=== PATIENT | male | born 1945 | race Caucasian/White ===

== ENCOUNTER 2016-11-22 16:03 | Emergency (ER) | payer MEDICARE, OTHER ==
[~2016-11-22] VITALS: Ht 180.3 cm; Wt 99.8 kg
[~2016-11-22 16:03] MED LIST: ALEV220C2 PO; AMLO-59 PO; ATOR40TA PO; BUSP10TA PO; CALC500T49 PO; CHEW500C2 PO; FLUO20CA8 PO; FOLI1TAB2 PO; LISI40TAB PO; OMEP20CA3 PO; OXYC1SOL PO; PX O20TA PO; SM A
[2016-11-22] MEDS ORDERED: DULO1CAP PO (16:18)
[2016-11-22 17:30] LABS: MEAN CORPUSCULAR HEMOGLOBIN 33.3 pg (27.0-33.0); MEAN CORPUSCULAR HGB CONC 34.5 g/dl (32.0-36.5); MEAN CORPUSCULAR VOLUME 96.5 fl (80.0-96.0); RED CELL DISTRIBUTION WIDTH 13.9 % (11.5-14.5); WHITE BLOOD COUNT 9.4 K/mm3 (4.0-10.0)
[2016-11-22 17:55] LABS: ANION GAP 5 MEQ/L (8-16); BLOOD UREA NITROGEN 45 MG/DL (7-18); CALCIUM LEVEL 8.8 MG/DL (8.8-10.2); CARBON DIOXIDE LEVEL 28 MEQ/L (21-32); CHLORIDE LEVEL 110 MEQ/L (98-107); CREATININE FOR GFR 2.39 MG/DL (0.70-1.30); GLOMERULAR FILTRATION RATE 28.8 (>42); GLUCOSE, FASTING 101 MG/DL (83-110); POTASSIUM SERUM 4.4 MEQ/L (3.5-5.1); SODIUM LEVEL 143 MEQ/L (136-145)
--- NOTE | 2016-11-22 19:00 | REPUSA ---
CT of the chest without contrast Clinical statement: lung nodules. Technique: Multiple axial CT images were obtained with 5 mm cuts through the chest without administra tion of contrast. Comparison: None. Findings: There is no thoracic lymphadenopathy. The visualized portions of the thyroid gland is unrem arkable. There are no pericardial or pleural effusions. The lungs are clear. No nodules are appreciat ed. Limited imaging of the upper abdomen does not demonstrate any acute abnormalities. There are no suspicious osseous lesions. Impression: Unremarkable CT examination of the chest.
--- NOTE | 2016-11-22 19:18 | REP ---
TWO VIEW CHEST: Two views of the chest were performed without priors for comparison. There are increased interstitial markings in each lung base. This may be acute or chronic. No consolidating infiltrate is seen. The heart is normal in size. There is some calcification of the thoracic aorta. There is mild biapical pleural thickening. There are mild degenerative changes of the spine. IMPRESSION: Mild bibasilar interstitial densities may be acute or chronic. Signed by Zeke Hart MD 11/22/2016 08:07 P
[2016-11-22 19:21] VITALS: BP 136/64
--- NOTE | 2016-11-23 07:03 | REP ---
Abdominal aortic sonography: History: Evaluate for aneurysm. No comparison study. Findings: Scanning through the retroperitoneum demonstrates that the abdominal aorta measures 2.3 x 2.9 cm in AP by transverse dimension at the diaphragmatic hiatus. There is a small aneurysm at or just above the level of the renal arteries measuring 3.3 x 3.3 cm in AP by transverse dimension by 3.4 cm in length. The distal aorta measures 2.6 x 2.1 cm in AP by transverse dimension. The right and left common iliac arteries are 1.7 cm in AP dimension. Impression: Small 3.3 cm abdominal aortic aneurysm at or just above the level of the renal arteries. Signed by John Sommer MD 11/24/2016 03:56 P
--- NOTE | 2016-11-23 17:21 | ECGEPIP ---
Stationary ECG Study [facility] Test Date: 2016-11-22 Pat Name: HAILEY PERDOMO Department: Room: - Gender: M Wire Repairer: id : 1945 Requested By: LYNDA CYR Order Number: [id number] Reading MD: Bryn Agosto Measurements Intervals [place] Rate: 54 P: 64 KS: 162 QRS: 66 QRSD: 91 T: 56 QT: 424 QTc: 404 Interpretive Statements SINUS BRADYCARDIA No prior ECG available for comparison at the time of interpretation. Electronically Signed On 11-23-2016 17:20:41 EDT by Bryn Agosto
--- NOTE | 2016-11-26 18:13 | ED PDOC ---
Post-Departure [facility] report of aorta us for fu Alpesh Taylor MD November 26, 2016 18:13
== END 2016-11-22 19:22 | disposition home or self-care (01) ==
LOC: M ED 18:24
DX: R91.1 Solitary pulmonary nodule (principal); N19 Unspecified kidney failure; I71.4 Abdominal aortic aneurysm, without rupture; I11.9 Hypertensive heart disease without heart failure; E78.00 Pure hypercholesterolemia, unspecified; Z85.46 Personal history of malignant neoplasm of prostate; Z79.899 Other long term (current) drug therapy; Z79.82 Long term (current) use of aspirin; F17.210 Nicotine dependence, cigarettes, uncomplicated

== ENCOUNTER → 2017-11-04 | Outpatient (CLI) | payer OTHER | LOC: M RAD 06:54 | DX: I71.4 Abdominal aortic aneurysm, without rupture (principal); I65.23 Occlusion and stenosis of bilateral carotid arteries | CPT/HCPCS: 76775 ==

== ENCOUNTER 2019-06-24 10:53 | Emergency (ER) | payer MEDICARE, OTHER ==
[~2019-06-24] VITALS: Ht 180.3 cm; Wt 92.7 kg
[~2019-06-24 10:53] MED LIST changes: +AMLO-140 PO; -AMLO-59 PO; -ATOR40TA PO; +ATOR40TA75 PO; +DULO1CAP4 PO; +FLUO20CA20 PO; -FLUO20CA8 PO; +FOLI1TAB11 PO; -FOLI1TAB2 PO; +LISI40TA52 PO; -LISI40TAB PO; +OMEP-172 PO; -OMEP20CA3 PO; -OXYC1SOL PO; +OXYC1SOL3 PO
[2019-06-24 11:28] LABS: VENOUS HCO3 24.5 MEQ/L (23.0-27.0); VENOUS O2 SATURATION 80.5 % (60.0-80.0); VENOUS PARTIAL PRESSURE CO2 48.2 mmHg (38.0-50.0); VENOUS PARTIAL PRESSURE O2 44.3 mmHg (30.0-50.0); VENOUS PH 7.324 UNITS (7.330-7.430); VENOUS STANDARD HCO3 22.4 MEQ/L
[2019-06-24 11:33] LABS: BASO % 0.4 % (0.0-1.0); EOS # 0.1 10^3/uL (0.0-0.5); EOS % 1.1 % (0.0-3.0); HEMATOCRIT 42.2 % (42.0-52.0); HEMOGLOBIN 13.9 g/dl (13.5-17.5); LYMPH # 1.3 10^3/uL (1.5-5.0); LYMPH % 12.7 % (24.0-44.0); MEAN CORPUSCULAR HEMOGLOBIN 31.4 pg (27.0-33.0); MEAN CORPUSCULAR HGB CONC 32.9 g/dl (32.0-36.5); MEAN CORPUSCULAR VOLUME 95.3 fl (80.0-96.0); MONO # 1.1 10^3/uL (0.0-0.8); MONO % 10.5 % (0.0-5.0); NEUTROPHILS # 7.5 10^3/uL (1.5-8.5); NEUTROPHILS % 74.7 % (36.0-66.0); PLATELET COUNT, AUTOMATED 190 10^3/uL (150-450); RED BLOOD COUNT 4.43 10^6/uL (4.30-6.10)
--- NOTE | 2019-06-24 11:40 | REP ---
Portable chest x-ray: Single view. History: Dyspnea and cough. Comparison study: November 22, 2016. Findings: EKG monitoring electrodes overlie the chest. Oxygen delivery tubing is seen. The heart is not enlarged. Lungs are well inflated and free of focal infiltrate. Pulmonary vasculature is not increased. There are multiple healed rib fractures along the left lateral chest wall. Impression: No acute disease. Electronically Signed by John Sommer MD 06/24/2019 11:31 A
[2019-06-24] MEDS ORDERED: CVS400CA PO (11:43)
[2019-06-24] MEDS ORDERED: AMIT50TA PO (11:43)
[2019-06-24] MEDS ORDERED: LISI40TA PO (11:43)
[2019-06-24] MEDS ORDERED: OXYC-517 PO (11:43)
[2019-06-24 11:54] LABS: INR 1.06; PROTHROMBIN TIME 13.5 SECONDS (11.8-14.0)
[2019-06-24] MEDS: IPRATROPIUM 0.5MG/ALBUTEROL 2.5MG INH SOL UD 3ML (DUONEB)(J7620) NEB SCH ×3 (11:54→13:29)
[2019-06-24 12:07] LABS: ALBUMIN 3.4 GM/DL (3.2-5.2); ALT/SGPT 14 U/L (12-78); BILIRUBIN,DIRECT 0.3 MG/DL (0.0-0.2); BILIRUBIN,TOTAL 0.9 MG/DL (0.2-1.0); BLOOD UREA NITROGEN 20 MG/DL (7-18); CALCIUM LEVEL 8.4 MG/DL (8.8-10.2); CARBON DIOXIDE LEVEL 26 MEQ/L (21-32); CHLORIDE LEVEL 110 MEQ/L (98-107); CK-MB VALUE MASS 1.1 NG/ML (<3.6); CPK CREATINE PHOSPHOKINASE 446 U/L (39-308); CREATININE FOR GFR 1.72 MG/DL (0.70-1.30); GLOMERULAR FILTRATION RATE 41.7 (>42); GLUCOSE, FASTING 88 MG/DL (70-100); MB/CK RELATIVE INDEX 0.25 (< OR =4); NT-PRO BNP 224 PG/ML (<125); POTASSIUM SERUM 3.5 MEQ/L (3.5-5.1); SODIUM LEVEL 142 MEQ/L (136-145); THYROID STIMULATING HORMONE 0.436 uIU/ML (0.358-3.740); TOTAL PROTEIN 6.9 GM/DL (6.4-8.2); TROPONIN I < 0.02 NG/ML (< 0.10)
[2019-06-24] MEDS ORDERED: EASYMIS17 XX (14:11)
[2019-06-24] MEDS ORDERED: ALBU83IN NEB (14:14)
[2019-06-24 14:15] VITALS: BP 151/67
--- NOTE | 2019-06-24 22:07 | ECGEPIP ---
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
== END 2019-06-24 14:38 | disposition left against medical advice (07) ==
LOC: M ED 10:53
DX: J06.9 Acute upper respiratory infection, unspecified (principal); R09.02 Hypoxemia; R00.1 Bradycardia, unspecified; R94.31 Abnormal electrocardiogram [ECG] [EKG]; F17.200 Nicotine dependence, unspecified, uncomplicated; F32.9 Major depressive disorder, single episode, unspecified; I10 Essential (primary) hypertension; Z53.20 Procedure and treatment not carried out because of patient's decision for unspecified reasons; Z79.82 Long term (current) use of aspirin; Z79.899 Other long term (current) drug therapy; Z91.013 Allergy to seafood

== ENCOUNTER → 2020-02-25 | Outpatient (CLI) | payer OTHER ==
[~2020-02-25] MED LIST changes: +ALBU83IN NEB; +AMIT50TA PO; +CVS400CA PO; +EASYMIS17 XX; +LISI40TA PO; -OMEP-172 PO; +OMEP-404 PO; +OMEP1CAP73 PO; +OXYC-517 PO; -PX O20TA PO
--- NOTE | 2020-04-06 10:45 | REP ---
DUPLEX CAROTID SONOGRAPHY HISTORY: Occlusion or stenosis. FINDINGS: Antegrade flow is observed in both vertebral arteries. RIGHT CAROTID: The right common carotid artery shows diffuse intimal thickening and mixed plaquing. There is moderate mixed plaquing in the bulb and proximal ICA, as well as the proximal ECA on two-dimensional scanning on the right side. Color flow and spectral Doppler interrogation are unremarkable in the ICA. Mild stenotic flow velocity is observed in the ECA tracing on the right. VELOCITY CHART RIGHT CAROTID PSV EDV CCA 98 cm/s ICA 104 cm/s 20 cm/s ECA 173 cm/s ICA/CCA ratio 1.07 (normal) IMPRESSION: Less than 50% category narrowing in the right ICA by Doppler velocity criteria. Stenotic flow velocities are observed in the externa carotid artery on the right. LEFT CAROTID: There is diffuse intimal thickening and mixed plaquing in the left common carotid artery. Moderate mixed plaquing is seen in the bulb and proximal ICA on the left and in the ECA as well. Color flow and spectral Doppler interrogation are unremarkable on the left. VELOCITY CHART LEFT CAROTID PSV EDV CCA 107 cm/s ICA 81 cm/s 17 cm/s ECA 115 cm/s ICA/CCA ratio 0.75 (normal) IMPRESSION: Less than 50% category narrowing in the left ICA by Doppler velocity criteria. Moderate mixed plaquing. MTDD
== END ==
LOC: M RAD 14:30
PROVIDERS: ATTEND Physician Assistant Medical
DX: I65.23 Occlusion and stenosis of bilateral carotid arteries (principal)

== ENCOUNTER → 2020-03-30 | Outpatient (CLI) | payer OTHER ==
--- NOTE | 2020-03-30 12:25 | REPVR ---
PROCEDURE INFORMATION: Exam: MR Lumbar Spine Without Contrast. Exam date and time: 03/30/2020 11:38 AM Age: 74 years old Clinical indication: Low back pain; Additional info: Lbp TECHNIQUE: Imaging protocol: Multiplanar magnetic resonance images of the lumbar spine without intravenous contrast. COMPARISON: No relevant prior studies available. FINDINGS: Vertebrae: There is a moderate lumbar dextroscoliosis. There is straightening of the normal lumbar lordosis. There is 3 mm of grade 1 retrolisthesis of L2 with respect to L3. There are multifocal Schmorl's nodes at T11/12, T12/L1, L1/L2 and L2/L3. There is severe intervertebral disc space loss at L2/3 and L5/S1, with endplate changes. Spinal cord: Normal signal. No cord compression. L1-L2: There is diffuse disc bulging. There is mild facet hypertrophy. There is mild bilateral neural foraminal narrowing. L2-L3: There is diffuse disc bulging. There is moderate facet hypertrophy. There is moderate right and mild left neural foraminal narrowing. L3-L4: There is diffuse disc bulging/uncovering related to listhesis with a superimposed left subarticular protrusion. This effaces the left lateral recess, with potential compromise of the left L4 nerve root. There is moderate facet hypertrophy. There is moderate to severe left neural foraminal narrowing. L4-L5: There is diffuse disc bulging. There is moderate facet hypertrophy. The spinal canal and neural foramina are patent. L5-S1: There is diffuse disc bulging. There is moderate facet hypertrophy. There is moderate right and mild left neural foraminal narrowing. Soft tissues: Unremarkable. Other findings: There is a 3 cm infrarenal abdominal aortic aneurysm. IMPRESSION: Degenerative disc disease and spondylosis. At L3/4, changes contribute to severe left lateral recess stenosis, with potential compromise of the left L4 nerve root. There is moderate to severe left neural foraminal narrowing as well. Electronically signed by: Karina Kelly On 03/30/2020 12:25:15 PM
== END ==
LOC: M RAD 10:29
PROVIDERS: ATTEND Physician Assistant Medical
DX: M51.26 Other intervertebral disc displacement, lumbar region (principal); M47.816 Spondylosis without myelopathy or radiculopathy, lumbar region

== ENCOUNTER → 2020-07-10 | Outpatient (CLI) | payer OTHER ==
[~2020-07-10] MED LIST changes: +CALC-362 PO; -CHEW500C2 PO
--- NOTE | 2020-07-12 00:53 | ECWPNPC ---
PATIENT NAME: HAILEY PERDOMO : 1945 GENDER: MALE VISIT DATE: 07/10/2020 DISCHARGE DATE: 07/10/20 1402 VISIT LOCKED DATE TIME: PHYSICIAN: KATHERYN FUENTES RESOURCE: KATHERYN FUENTES REASON FOR APPOINTMENT 1. LOW BACK PAIN HISTORY OF PRESENT ILLNESS DEPRESSION SCREENING: PHQ-2 (2015 EDITION) LITTLE INTEREST OR PLEASURE IN DOING THINGS?NOT AT ALL FEELING DOWN, DEPRESSED, OR HOPELESS?NOT AT ALL TOTAL SCORE0 GENERAL: 75-YEAR-OLD MALE IN FOR INITIAL PAIN CONSULT REGARDING LOW BACK PAIN. HE RATES HIS PAIN CURRENTLY AT A 10 OUT OF 10 AND DESCRIBES IT CONTINUOUS, SHARP, SORE, AND SHOOTING. PATIENT IS CURRENTLY TAKING MEDICATIONS THAT ARE PRESCRIBED BY ANOTHER PROVIDER AND HE ADMITS THAT WHEN HE TAKES SAID MEDICATION HIS PAIN GOES FROM A 10 TO A 7. HE DENIES HISTORY OF TRAUMA TO HIS BACK. FALL RISK SCREENING: SCREENING :TWO OR MORE FALLS WITHOUT INJURY IN THE PAST YEAR PAIN SCREENING: PATIENT HAS A COMPLAINT OF ACUTE OR CHRONIC PAIN :YES LOCATION OF PAIN:LOW BACK, BACK, FEET INTENSITY OF PAIN (SCALE OF 1 TO 10):10 CROSS THE MIDDLE OF MY BACK AND EXPERIENCES TINGLING ON THE BOTTOMS OF FEET "CANNOT EVEN FEEL T;HEM SOMETIMES" WHAT DOES YOUR PAIN FEEL LIKE:CONTINOUS, SHARP, SORE, SHOOTING PAIN IS DECREASED BY:USE OF PAIN MEDICATIONS NLY TIME I DONT HAVE PAIN IS "WHEN I AM SLEEPING" NURSING NOTE: - - -. PAIN CENTER INTAKE QUESTIONS: DO YOU HAVE A HISTORY OF MRSA? :NO DO YOU TAKE A BLOOD THINNERS? :NO DO YOU HAVE ANY BLEEDING DISORDERS? :NO ANY NEW NUMBNESS OR WEAKNESS IN YOUR LEGS OR ARMS? :NO ANY PACEMAKER,DEFIBRILLATOR, OR DORSAL COLUMN STIMULATOR? :NO DO YOU HAVE ANY RASHES OR OPEN SORES? :NO ARE YOU ALLERGIC TO IV DYE? :NO ARE YOU DIABETIC? :NO ANY NEW PROBLEMS WITH YOUR MEDICATIONS? :NO HAVE YOU RECEIVED A VACCINE IN THE PAST 30 DAYS? :NO DO YOU PLAN TO RECEIVE A VACCINE IN THE NEXT 21 DAYS? :NO DO YOU NEED ANY PRESCRIPTION? :NO DO YOU TAKE ANY IMMUNOSUPPRESSIVE MEDICATIONS? :NO CURRENT MEDICATIONS TAKING AMLODIPINE BESYLATE 10 MG TABLET 1 TABLET ORALLY ONCE A DAY TAKING LISINOPRIL 40 MG TABLET 1 TABLET ORALLY ONCE A DAY TAKING SERTRALINE HCL 100 MG TABLET 1 TABLET ORALLY ONCE A DAY TAKING SIMVASTATIN 40 MG TABLET 1 TABLET IN THE EVENING ORALLY ONCE A DAY TAKING OXYCODONE HCL 5 MG TABLET 1 TABLET NEEDED ORALLY RNTID NOT-TAKING GABAPENTIN 300 MG CAPSULE 1 CAPSULE ORALLY SIX TIMES A DAY NOT-TAKING POTASSIUM CHLORIDE 10 MEQ CAPSULE EXTENDED RELEASE 1 CAPSULE ORALLY FOUR TIMES A DAY NOT-TAKING CALCIUM + D 600-400 MG-UNIT TABLET 1 TABLET WITH FOOD ORALLY ONCE A DAY NOT-TAKING ZOLPIDEM TARTRATE 5 MG TABLET 1 TABLET AT BEDTIME ORALLY ONCE A DAY NOT-TAKING CIPRO 500 MG TABLET 1 TABLET ORALLY EVERY 12 HRS MEDICATION LIST REVIEWED AND RECONCILED WITH THE PATIENT PAST MEDICAL HISTORY PROSTATE CA - 09/2007; PSA 98, DARIEN 4+3 WITH COMPONENT OF 5. TREATED WITH XRT AND ANDORGEN DEPRIVATION BLADDER CA - 01/2008 HTN BACK PAIN, NECK PAIN, ARTHRITIS DEPRESSION/ANXIETY/PTSD HYPOPOTASSEMIA DIVERTICULOSIS OF COLON GERD HYPERLIPIDEMIA UPPER DENTURES CHRONIC BACK PAIN ARTHRITIS ALLERGIES SHELLFISH: NAUSEA/VOMITING - ALLERGY ASPIRIN: NAUSEA/VOMITING - SIDE EFFECTS LYRICA: PASSED OUT - SIDE EFFECTS - ONSET DATE 07/10/2020 SURGICAL HISTORY TURBT TRUS BIOPSY FAMILY HISTORY FATHER: ALIVE, HEART DISEASE/PROBLEMS MOTHER: 1 BROTHER(S) , 1 SISTER(S) . NO KNOWN FAMILY HISTORY OF ANY UROLOGICALLY RELATED DISEASES/CANCERS. SOCIAL HISTORY GENERAL: TOBACCO USE ARE YOU A:CURRENT SMOKER ARE YOU INTERESTED IN QUITTING?NOT READY TO QUIT HOW MANY CIGARETTES A DAY DO YOU SMOKE?31 OR MORE HOW SOON AFTER YOU WAKE UP DO YOU SMOKE YOUR FIRST CIGARETTE?WITHIN 5 MIN HOW OFTEN DO YOU SMOKE CIGARETTES?EVERY DAY PATIENT COUNSELED ON THE DANGERS OF TOBACCO USE AND URGED TO QUIT:07/10/2020 ALCOHOL SCREENING DID YOU HAVE A DRINK CONTAINING ALCOHOL IN THE PAST YEAR?NO POINTS0 INTERPRETATIONNEGATIVE RECREATIONAL DRUG USE DENIES. CAFFEINE >5/DAY. SEXUAL HX HAD SEX IN THE LAST 12 MONTHS (VAGINAL, ORAL, OR ANAL)?NO HAVE YOU EVER HAD AN STD?NO MORMONISM NO NONDENOMINATIONAL BELIEFS THAT WOULD IMPACT HEALTH CARE. LANGUAGE NEPALI. EDUCATION LEVEL OF EDUCATION:NOT FINISHED HIGH SCHOOL OCCUPATION: RETIRED WORKED OUT ON POST "[employer]FW[employer]", . DIET: REGULAR. EXERCISE: NO REGULAR EXERCISE. MARITAL STATUS: . OTHERS AT HOME: OTHER NON-RELATIVE. HOSPITALIZATION/MAJOR DIAGNOSTIC PROCEDURE NO HOSPITALIZATION HISTORY. REVIEW OF SYSTEMS CONSTITUTIONAL: ANY RECENT FEVER NO . CHILLS NO . WEIGHT CHANGE OF UNKNOWN REASONS NO . MUSCULOSKELETAL: ANY UNUSUAL JOINT PAIN OR SWELLING NOT MENTIONED NO . SYSTEMIC LUPUS NO . ANY NEUROMUSCULAR DISORDER NOT MENTIONED NO . LYME DISEASE NO . GASTROENTEROLOGY: ANY NEW CHANGE IN BOWEL CONTROL? NO . HISTORY OF LIVER DISORDER NOT MENTIONED NO . HISTORY OF UNUSUAL ABDOMINAL PAIN OR CRAMPING NOT MENTIONED NO . NO CONSTIPATION. GENITOURINARY: ANY NEW CHANGE IN BLADDER CONTROL? NO . ANY RENAL/KIDNEY CONDITON NOT MENTIONED NO . NEUROLOGY: HISTORY OF TBI NOT MENTIONED NO . OTHER NEW NUMBNESS OR PAIN PATTERNS NOT MENTIONED NO . NEW ONSET DIZZINESS OR NEUROLOGICAL CHANGES NOT MENTIONED NO . HISTORY OF SEVERE HEADACHES NOT MENTIONED NO . HISTORY OF STROKE OR NEUROLOGICAL DISORDER NOT MENTIONED NO . CARDIOLOGY: HEART SURGERY NO . CONGESTIVE HEART FAILURE/FLUID OVERLOAD NOT MENTIONED NO . HISTORY OF CHEST PAIN,IRREGULAR HEART BEAT NOT MENTIONED NO . RESPIRATORY: SHORTNESS OF BREATH ON EXERTION, WHEEZES, UNUSUAL COUGH NOT MENTIONED NO . ENDOCRINOLOGY: ADRENAL GLAND OR THYROID DISORDERS NOT MENTIONED NO . UNUSUAL URINATION, DIZZINESS OR LETHARGY NOT MENTIONED NO . VITAL SIGNS WT 215.8 LBS, HT 6', BMI 29.26 INDEX, BP 147/63 MM HG, HR 87 /MIN, RR 18 /MIN, TEMP 98.3 F, OXYGEN SAT % 97%, SAFE IN ENV? (Y/N) Y, NA INITIALS AW 1307, REVIEWED BY: KG. EXAMINATION GENERAL EXAMINATION: GENERALNO ACUTE DISTRESS, WELL NOURISHED AND HYDRATED. PSYCHAPPROPRIATE MOOD AND AFFECT . LUNGS:LUNG SOUNDS DECREASED BILATERALLY . HEART:NO MURMURS, REGULAR RATE AND RHYTHM. BACK: DENIES POINT TENDERNESS ALONG LUMBAR SPINE, STARTING SKIN SHOWS NO ERYTHEMA, ECCHYMOSIS, INCREASED WARMTH, AND/OR SKIN ERUPTIONS NOTED. . MUSCULOSKELETAL:WEAKNESS OF THE LOWER EXTREMITIES BILATERALLY . ASSESSMENTS INTERVERTEBRAL DISC DISORDER WITH RADICULOPATHY OF LUMBOSACRAL REGION - M51.17 (PRIMARY) TREATMENT INTERVERTEBRAL DISC DISORDER WITH RADICULOPATHY OF LUMBOSACRAL REGION NOTES: 75-YEAR-OLD MALE IN FOR INITIAL PAIN CONSULT. GIVEN PRESENTING SYMPTOMS AND RESULTS PHYSICAL EXAMINATION RECOMMENDED LUMBAR EPIDURAL STEROID INJECTION L3-L4 L4-L5 WITH POSTPROCEDURAL FOLLOW-UP. PATIENT HAS EXPRESSED UNDERSTANDING OF AND WAS IN AGREEMENT WITH TREATMENT PLAN. GIVEN TIME TO ASK QUESTIONS AND EXPRESS CONCERNS. PREVENTIVE MEDICINE PAIN CLINIC TEACHING: PROCEDURE TEACHING PRINTED MATERIAL GIVEN AND PRE PROCEDURE INSTRUCTIONS. PROCEDURE CODES FA211 ESTABILISHED PATIENT [facility] CHARGE DISPOSITION & COMMUNICATION FOLLOW UP POSTPROCEDURE (REASON: LUMBAR EPIDURAL STEROID INJECTION L3-L4 L4-L5) ELECTRONICALLY SIGNED BY KLARISSA THOMPSON ON 07/11/2020 AT 08:59 AM EST DISCLAIMER : THIS IS A VISIT SUMMARY EXTRACTED FROM THE [email or web address] CHART. IT IS NOT A COPY OF THE [facility] [email or web address] PROGRESS NOTE. HEIDID
== END ==
LOC: M PAIN 13:00
PROVIDERS: ATTEND Family Medicine
DX: M51.17 Intervertebral disc disorders with radiculopathy, lumbosacral region (principal); F17.210 Nicotine dependence, cigarettes, uncomplicated; Z86.59 Personal history of other mental and behavioral disorders; Z88.6 Allergy status to analgesic agent; Z88.8 Allergy status to other drugs, medicaments and biological substances; Z91.013 Allergy to seafood; Z79.899 Other long term (current) drug therapy

== ENCOUNTER → 2021-05-23 | Outpatient (REF) | payer OTHER, MEDICARE ==
[~2021-05-23] MED LIST changes: -LISI40TA PO; +LISI40TA4 PO
== END ==
LOC: M LAB REF 17:22
PROVIDERS: ATTEND Physician Assistant
DX: L82.1 Other seborrheic keratosis (principal); L57.8 Other skin changes due to chronic exposure to nonionizing radiation

== ENCOUNTER → 2021-06-21 | Outpatient (CLI) | payer OTHER ==
[~2021-06-21] MED LIST changes: +FLUO-96 PO; -FLUO20CA20 PO
== END ==
LOC: M PLAIMG 14:38
PROVIDERS: ATTEND Physician Assistant Medical
DX: I71.4 Abdominal aortic aneurysm, without rupture (principal); M48.061 Spinal stenosis, lumbar region without neurogenic claudication; M51.26 Other intervertebral disc displacement, lumbar region

== ENCOUNTER → 2021-12-04 | Outpatient (CLI) | payer OTHER | LOC: M PLAIMG 08:43 | PROVIDERS: ATTEND Internal Medicine | DX: M51.27 Other intervertebral disc displacement, lumbosacral region (principal); M51.26 Other intervertebral disc displacement, lumbar region ==

== ENCOUNTER → 2022-01-30 | Outpatient (CLI) | payer OTHER, MEDICARE ==
[~2022-01-30] MED LIST changes: +ALBU2.5V10 NEB; -ALBU83IN NEB
== END ==
LOC: M PAIN 13:30
PROVIDERS: ATTEND Nurse Practitioner Family
DX: M54.50 Low back pain, unspecified (principal); I10 Essential (primary) hypertension; M54.2 Cervicalgia; F32.A Depression, unspecified; F41.9 Anxiety disorder, unspecified; F43.10 Post-traumatic stress disorder, unspecified; E87.6 Hypokalemia; F17.210 Nicotine dependence, cigarettes, uncomplicated; K57.90 Diverticulosis of intestine, part unspecified, without perforation or abscess without bleeding; K21.9 Gastro-esophageal reflux disease without esophagitis; E78.5 Hyperlipidemia, unspecified; M19.90 Unspecified osteoarthritis, unspecified site; Z85.46 Personal history of malignant neoplasm of prostate; Z92.3 Personal history of irradiation; Z85.51 Personal history of malignant neoplasm of bladder; Z79.891 Long term (current) use of opiate analgesic; Z79.899 Other long term (current) drug therapy; Z88.6 Allergy status to analgesic agent; Z88.8 Allergy status to other drugs, medicaments and biological substances; Z91.013 Allergy to seafood

== ENCOUNTER → 2022-03-05 | Outpatient (CLI) | payer MEDICARE, OTHER ==
[~2022-03-05] MED LIST changes: +ASPI81TA26 PO; +CHOL400T PO
== END ==
LOC: M LABSMTC 09:14
PROVIDERS: ATTEND Anesthesiology
DX: Z01.818 Encounter for other preprocedural examination (principal); Z11.52 Encounter for screening for COVID-19

== ENCOUNTER → 2022-03-05 | Outpatient (CLI) | payer OTHER | LOC: M PLAIMG 14:52 | PROVIDERS: ATTEND Nurse Practitioner Family | DX: M51.36 Other intervertebral disc degeneration, lumbar region (principal); M51.37 Other intervertebral disc degeneration, lumbosacral region; M51.27 Other intervertebral disc displacement, lumbosacral region; M48.07 Spinal stenosis, lumbosacral region; M48.061 Spinal stenosis, lumbar region without neurogenic claudication; M25.78 Osteophyte, vertebrae ==

== ENCOUNTER 2022-03-06 08:34 | Day surgery (SDC) | payer OTHER ==
[~2022-03-06] VITALS: Ht 180.3 cm; Wt 78.9 kg
[~2022-03-06 08:34] MED LIST changes: +NS 1,000 ML IV ONE
[2022-03-06] MEDS ORDERED: LIDOCAINE 2% 100MG/5ML SDV (FOR ANES.) As Ordered ONE (09:33)
[2022-03-06] MEDS ORDERED: propofoL 200 MG/20 ML VIAL As Ordered ONE (09:33)
[2022-03-06] MEDS ORDERED: GLYCOPYRROLATE INJ 0.2 MG/ML 2 ML VIAL As Ordered ONE (09:47)
[2022-03-06 10:20] VITALS: BP 146/61
== END 2022-03-06 10:27 | disposition home or self-care (01) ==
LOC: M OPP 08:34
PROVIDERS: ATTEND Internal Medicine Gastroenterology
DX: R13.10 Dysphagia, unspecified (principal); R63.4 Abnormal weight loss; I10 Essential (primary) hypertension; E78.00 Pure hypercholesterolemia, unspecified; J44.9 Chronic obstructive pulmonary disease, unspecified; F41.9 Anxiety disorder, unspecified; G47.33 Obstructive sleep apnea (adult) (pediatric); Z92.3 Personal history of irradiation; Z85.46 Personal history of malignant neoplasm of prostate; F17.200 Nicotine dependence, unspecified, uncomplicated; Z79.02 Long term (current) use of antithrombotics/antiplatelets; Z79.51 Long term (current) use of inhaled steroids; Z79.82 Long term (current) use of aspirin; Z79.891 Long term (current) use of opiate analgesic; Z79.899 Other long term (current) drug therapy

== ENCOUNTER → 2022-04-17 | Outpatient (CLI) | payer MEDICARE, OTHER ==
[~2022-04-17] MED LIST changes: -NS 1,000 ML IV ONE
== END ==
LOC: M PAIN 11:45
PROVIDERS: ATTEND Nurse Practitioner Family
DX: M51.16 Intervertebral disc disorders with radiculopathy, lumbar region (principal); G89.29 Other chronic pain; I10 Essential (primary) hypertension; F17.210 Nicotine dependence, cigarettes, uncomplicated; Z86.59 Personal history of other mental and behavioral disorders; Z88.6 Allergy status to analgesic agent; Z88.8 Allergy status to other drugs, medicaments and biological substances; Z91.013 Allergy to seafood; Z79.82 Long term (current) use of aspirin; Z79.899 Other long term (current) drug therapy

== ENCOUNTER → 2022-04-25 | Outpatient (CLI) | payer OTHER | LOC: M RAD 08:47 | PROVIDERS: ATTEND Physician Assistant Medical | DX: I71.40 Abdominal aortic aneurysm, without rupture, unspecified (principal) ==

== ENCOUNTER → 2024-02-13 | Outpatient (REF) | payer MEDICARE, OTHER ==
[2024-02-13 13:29] LABS: APPEARANCE, URINE CLEAR (CLEAR); BACTERIA, URINE AUTO NEGATIVE (NEGATIVE); BILIRUBIN, URINE AUTO NEGATIVE (NEGATIVE); BLOOD, URINE BLOOD 1+ (NEGATIVE); COLOR, URINE YELLOW (YELLOW); GLUCOSE, URINE (UA) AUTO NEGATIVE (NEGATIVE); KETONE, URINE AUTO NEGATIVE (NEGATIVE); LEUKOCYTE ESTERASE, URINE AUTO NEGATIVE (NEGATIVE); NITRITE, URINE AUTO NEGATIVE (NEGATIVE); PROTEIN, URINE AUTO 2+ mg/dL (NEGATIVE); RBC, URINE AUTO 1 /HPF (0-3); SPECIFIC GRAVITY URINE AUTO 1.013 (1.002-1.035); SQUAMOUS EPITHELIAL CELL UR AU 0 /HPF (0-6); UROBILINOGEN, URINE AUTO 0.2 mg/dL (0.0-2.0); WBC, URINE AUTO 2 /HPF (0-3)
== END ==
LOC: M SMT 12:36
PROVIDERS: ATTEND Urology
DX: R31.0 Gross hematuria (principal)

== ENCOUNTER → 2025-01-24 | Outpatient (CLI) | payer OTHER ==
[~2025-01-24] MED LIST changes: +LISI40TA10 PO; -LISI40TA4 PO
== END ==
LOC: M RAD 10:12
PROVIDERS: ATTEND Physician Assistant
DX: I71.40 Abdominal aortic aneurysm, without rupture, unspecified (principal)

== ENCOUNTER → 2025-03-11 | Outpatient (CLI) | payer OTHER | LOC: M PLAIMG 13:41 | PROVIDERS: ATTEND Physician Assistant | DX: R01.1 Cardiac murmur, unspecified (principal) ==

== ENCOUNTER → 2025-03-25 | Outpatient (CLI) | payer OTHER | LOC: M LAB 11:28 | PROVIDERS: ATTEND Urology | DX: Z85.46 Personal history of malignant neoplasm of prostate (principal) ==

== ENCOUNTER → 2025-04-11 | Outpatient (CLI) | payer OTHER | LOC: M RAD 13:06 | PROVIDERS: ATTEND Nurse Practitioner Family | DX: N18.4 Chronic kidney disease, stage 4 (severe) (principal) ==

== ENCOUNTER → 2025-05-18 | Outpatient (CLI) | payer OTHER | LOC: M RAD 12:11 | PROVIDERS: ATTEND Registered Nurse | DX: R63.4 Abnormal weight loss (principal); N18.4 Chronic kidney disease, stage 4 (severe); J43.9 Emphysema, unspecified; J98.11 Atelectasis; N28.1 Cyst of kidney, acquired; K57.90 Diverticulosis of intestine, part unspecified, without perforation or abscess without bleeding; K42.9 Umbilical hernia without obstruction or gangrene ==

== ENCOUNTER → 2025-07-11 | Outpatient (REF) | payer OTHER ==
[2025-07-11 17:50] LABS: TOTAL PROTEIN,RANDOM URINE 437.3 MG/DL (0.0-14.0)
[2025-07-13 22:38] LABS: PROTEIN, TOTAL SO 6.8 g/dL (6.1-8.1)
== END ==
LOC: M LAB REF 16:38
PROVIDERS: ATTEND Internal Medicine Nephrology
DX: N18.4 Chronic kidney disease, stage 4 (severe) (principal); R80.9 Proteinuria, unspecified